=== PATIENT | female | born 1980 | race American Indian/Alaskan Native ===

== ENCOUNTER 2017-07-26 12:36 | Emergency (ER) | payer SELFPAY ==
[2017-07-26] MEDS ORDERED: MOTRIN PO ONE (16:01)
--- NOTE | 2017-07-26 16:01 | Emergency Department Report ---
ED Extremity Problem HPI - General Chief complaint: Extremity Injury, Lower Stated complaint: RIGHT KNEE PAIN/FALL Time Seen by Provider: 07/26/17 15:36 Source: patient Mode of arrival: Ambulatory Limitations: No Limitations - History of Present Illness Initial comments: Patient reports that she had a ground-level fall last night. She said her right knee dislocated but when she hit the ground it popped back into place and also complaining of left knee pain and left hip pain. Denies any head injury or loss of consciousness. Pain to left knee is 4 out of 10. Reports that when she walks it's painful but she is able to bear weight. Denies any nausea or vomiting. Denies any dizziness. Pain is achy and she said she had not take any [id number] medication for pain. Medical history of bronchitis. Blood pressure is 140/100 and patient reports she does not have a history of high blood pressure but she does have family history of high blood pressure MD Complaint: joint swelling (swelling to both knees), joint paint -: Last night Location: left, right, knee History of Same: No -: No myalgia, Yes arthralgia, No fever, No associated dyspnea, No associated chest pain Radiation: none Severity scale (0 -10): 4 Quality: aching Consistency: intermittent Improves with: immobilization, rest Worsens with: weight bearing, walking, palpation Associated Symptoms: arthralgias. denies: chest pain, shortness of breath, fever, myalgias, rash - Related Data Previous Rx's Medication Instructions Recorded Last Taken Type Naproxen 500 mg PO Q12H PRN #12 tablet 07/26/17 Unknown Rx Allergies Allergy/AdvReac Type Severity Reaction Status Date / Time No Known Allergies Allergy Unverified 04/08/15 16:49 ED Review of Systems ROS: Stated complaint: RIGHT KNEE PAIN/FALL Other details as noted in HPI Comment: All other systems reviewed and negative Constitutional: no symptoms reported Respiratory: no symptoms reported Cardiovascular: denies: chest pain, palpitations, dyspnea on exertion, orthopnea , edema, syncope, paroxysmal nocturnal dyspnea Gastrointestinal: denies: abdominal pain, nausea, vomiting Musculoskeletal: joint swelling, arthralgia. denies: back pain, myalgia Skin: denies: rash Neurological: denies: headache, weakness, numbness, paresthesias, confusion, abnormal gait, vertigo ED Past Medical Hx - Past Medical History Previous Medical History?: Yes Additional medical history: Bronchitis - Surgical History Past Surgical History?: No - Family History Family history: no significant - Social History Smoking Status: Never Smoker Substance Use Type: Alcohol - Medications Home Medications: Home Medications Medication Instructions Recorded Confirmed Last Taken Type Naproxen 500 mg PO Q12H PRN #12 tablet 07/26/17 Unknown Rx ED Physical Exam - General Limitations: No Limitations General appearance: alert, in no apparent distress - Head Head exam: Present: atraumatic, normocephalic, normal inspection - Eye Eye exam: Present: normal appearance, PERRL, EOMI Pupils: Present: normal accommodation - ENT ENT exam: Present: normal exam, normal orophraynx, mucous membranes moist - Neck Neck exam: Present: normal inspection, full ROM. Absent: tenderness, meningismus, lymphadenopathy - Respiratory Respiratory exam: Present: normal lung sounds bilaterally. Absent: respiratory distress, chest wall tenderness, accessory muscle use - Cardiovascular Cardiovascular Exam: Present: regular rate, normal rhythm, normal heart sounds. Absent: systolic murmur, diastolic murmur - GI/Abdominal GI/Abdominal exam: Present: soft, normal bowel sounds. Absent: distended, tenderness, guarding, rebound, rigid, organomegaly, mass, bruit, pulsatile mass , hernia - Extremities Exam Extremities exam: Present: normal inspection, full ROM (patient with full range of motion to both knees but she reports pain with flexion and extension.), tenderness (tenderness to anterior knee), normal capillary refill, joint swelling (mild swelling noted to the anterior knee.), calf tenderness, other ( no clubbing, cyanosis or edema. +2 pulses to her extremity. No neurovascular compromise). Absent: pedal edema - Expanded Lower Extremity Exam Left Hip exam: Present: normal inspection, full ROM, pelvic stability. Absent: tenderness, swelling, abrasion, laceration, ecchymosis, deformity, crepidus, dislocation, erythema, external rotation, internal rotation, shortening Upper Leg exam: Present: normal inspection, full ROM. Absent: tenderness, swelling, abrasion, laceration, ecchymosis, deformity, crepidus, dislocation, erythema Knee exam: Present: full ROM (full range of motion to the knee but patient reports pain with flexion and extension), tenderness (anterior knee), swelling ( mild swelling), full knee extension. Absent: normal inspection, abrasion, laceration, ecchymosis, deformity, crepidus, dislocation, erythema, effusion, pain w/ pronation/supination, posterior draw sign, pain/laxity with valgus, pain /laxity with varus Lower Leg exam: Present: normal inspection, full ROM. Absent: tenderness, swelling, abrasion, laceration, ecchymosis, deformity, crepidus, dislocation, erythema, palpable cord, Aly's sign Ankle exam: Present: normal inspection, full ROM. Absent: tenderness, swelling , abrasion, laceration, ecchymosis, deformity, crepidus, dislocation, erythema Foot/Toe exam: Present: normal inspection, full ROM. Absent: tenderness, swelling, abrasion, laceration, ecchymosis, deformity, crepidus, dislocation, erythema, amputation, puncture wound, foreign body, calcaneal tenderness, tenderness at base of 5th metatarsal, nail avulsion, subungual hematoma Neuro vascular tendon exam: Present: no vascular compromise. Absent: pulse deficit, abnormal cap refill, motor deficit, sensory deficit, tendon deficit, extremity cold to touch, pallor, abnormal 2-point discrimination, decreased fine /light touch, foot drop, peroneal nerve deficit, significant pain with passive ROM of distal joint Gait: Positive: observed and limited by pain - Back Exam Back exam: Present: normal inspection, full ROM, other (she ambulates without any difficulties). Absent: tenderness, CVA tenderness (R), CVA tenderness (L), muscle spasm, paraspinal tenderness, vertebral tenderness, rash noted - Neurological Exam Neurological exam: Present: alert, oriented X3, normal gait, reflexes normal, other (no gross focal neurological deficit). Absent: motor sensory deficit - Psychiatric Psychiatric exam: Present: normal affect, normal mood - Skin Skin exam: Present: warm, dry, intact, normal color. Absent: rash ED Course Vital Signs 07/26/17 12:47 Temperature 98.8 F Pulse Rate 88 Respiratory 18 Rate Blood Pressure 141/100 O2 Sat by Pulse 99 Oximetry - Reevaluation(s) Reevaluation #1: 07/26/17 18:17 She given Motrin 800 mg when necessary emergency room for bilateral knee pain. See procedure note for details on splinting - Orthopedic Splinting/Casting Injury #1 Side: right Lower Extremity Injury Location: knee Lower Extremity Immobilizer: Ra wrap Injury #2 Side: left Lower Extremity Injury Location: knee Lower Extremity Immobilizer: Ra wrap ED Medical Decision Making - Radiology Data Radiology results: image reviewed interpreted by me: X-ray of both knees reveal no acute bony abnormalities - Medical Decision Making ED course: Patient here reports that she fell last night and injured both her knee. She said knees were dislocated but it popped back into place. She is not complain any pain 01/12. X-ray findings reveal no acute bony abnormality. Physical findings for tender anterior knee with mild swelling. No tenderness to posterior or lateral aspect of both knees. Patient able to ambulate with minimal pain. She is able to flex and extend her knees with minimal pain. I discussed the patient x-ray result. Ra wrap placed to both knees and I told her she will need to follow up with orthopedic doctor she continues to have pain. Patient was undescended discharge instruction and treatment plan she was given Motrin 800 mg by mouth in emergency room for knee pain and discharged home with prescription for naproxen and to follow-up with Dr. Hinojosa who is orthopedic doctor. Critical care attestation.: If time is entered above; I have spent that time in minutes in the direct care of this critically ill patient, excluding procedure time. ED Disposition Clinical Impression: Strain of knee, bilateral Bilateral knee pain Qualifiers: Chronicity: acute Qualified Code(s): M25.561 - Pain in right knee; M25.562 - Pain in left knee; M25.562 - Pain in left knee Disposition: TO HOME OR SELFCARE Is pt being admited?: No Does the pt Need Aspirin: No Condition: Stable Instructions: Arthralgia (ED), Knee Pain (ED), Knee Exercises (GEN) Additional Instructions: Take medication as prescribed . Referred to discharge instruction in [facility]. These follow-up with orthopedic doctor as instructed. Prescriptions: Naproxen 500 mg PO Q12H PRN #12 tablet PRN Reason: Pain, Moderate (4-6) Forms: Work/School Release Form(ED)
--- NOTE | 2017-07-26 18:28 | XRay Report ---
FINAL REPORT EXAM: XR KNEE BILAT 3V HISTORY: fall with renetta knee pain TECHNIQUE: Left knee three views Right knee three views PRIORS: None. FINDINGS: No fracture is identified. No dislocation seen. No evidence of joint effusion. Patella demonstrates normal positioning. No acute bony abnormality identified. IMPRESSION: Negative bilateral knee series
[2017-07-26 18:39] VITALS: BP 130/90
== END 2017-07-26 18:39 | disposition home or self-care (01) ==
LOC: ED 12:36
DX: S76.912A Strain of unspecified muscles, fascia and tendons at thigh level, left thigh, initial encounter (principal); S76.911A Strain of unspecified muscles, fascia and tendons at thigh level, right thigh, initial encounter; W18.30XA Fall on same level, unspecified, initial encounter; Y93.89 Activity, other specified; Y92.89 Other specified places as the place of occurrence of the external cause; Y99.8 Other external cause status
CPT/HCPCS: 99283

== ENCOUNTER 2019-10-31 09:50 | Emergency (ER) | payer SELFPAY ==
[2019-10-31 09:55] VITALS: BP 148/100
--- NOTE | 2019-10-31 12:39 | Emergency Department Report ---
ED Abdominal Pain HPI - General Chief Complaint: Abdominal Pain Stated Complaint: MIDDLE STOMACH KNOT/PAIN Time Seen by Provider: 10/31/19 12:38 Source: patient Mode of arrival: Ambulatory Limitations: No Limitations - Related Data Previous Rx's Medication Instructions Recorded Last Taken Type Naproxen 500 mg PO Q12H PRN #12 tablet 07/26/17 Unknown Rx Allergies Allergy/AdvReac Type Severity Reaction Status Date / Time No Known Allergies Allergy Unverified 04/08/15 16:49 ED Review of Systems ROS: Stated complaint: MIDDLE STOMACH KNOT/PAIN Other details as noted in HPI ED Past Medical Hx - Past Medical History Previous Medical History?: No Additional medical history: Bronchitis - Surgical History Past Surgical History?: No - Social History Smoking Status: Never Smoker Substance Use Type: Alcohol - Medications Home Medications: Home Medications Medication Instructions Recorded Confirmed Last Taken Type Naproxen 500 mg PO Q12H PRN #12 tablet 07/26/17 Unknown Rx ED Physical Exam - General Limitations: No Limitations ED Course Vital Signs 10/31/19 09:54 Temperature 98.1 F Pulse Rate 83 Respiratory 16 Rate Blood Pressure 148/100 O2 Sat by Pulse 98 Oximetry Critical care attestation.: If time is entered above; I have spent that time in minutes in the direct care of this critically ill patient, excluding procedure time. ED Disposition Condition: Stable Instructions: Abdominal Pain (ED) Referrals: PRIMARY CARE, [Primary Care Provider] - 3-5 Days
--- NOTE | 2019-10-31 13:04 | Emergency Department Report ---
Chief Complaint: Abdominal Pain Stated Complaint: MIDDLE STOMACH KNOT/PAIN Time Seen by Provider: 10/31/19 12:38 - HPI History of Present Illness: 38-year-old -[place] female presents to the emergency room for intermittent not to her middle abdomen for 4-5 months. Patient states that she notices worse when she lifts heavy objects or exercises. Patient states that the pain is when she lifts or does exercise. Patient reports that the pain was worse last week. - Exam Vital Signs: Vital Signs 10/31/19 09:54 Temperature 98.1 F Pulse Rate 83 Respiratory 16 Rate Blood Pressure 148/100 O2 Sat by Pulse 98 Oximetry Physical Exam: Patient's alert and oriented 3 no acute distress nontoxic in appearance. Abdomen soft nondistended and nontender all 4 quadrants. There is noted to have a protrusion on the umbilicus area with bearing down. Appears the patient has an umbilical hernia that is reducible. Ambulatory without difficulties range of motion of all extremities MSE screening note: Focused history and physical exam performed. Due to findings the following was ordered: 38-year-old -[place] female presents to the emergency room for intermittent not to her middle abdomen for 4-5 months. Patient states that she notices worse when she lifts heavy objects or exercises. Patient states that the pain is when she lifts or does exercise. Patient reports that the pain was worse last week. Exam is within normal limits. Discussed with patient she needs to follow up with general surgeon for evaluation of hernia repair. Patient verbalized understanding. ED Disposition for MSE Clinical Impression: Umbilical hernia Disposition: DC-01 TO HOME OR SELFCARE Is pt being admited?: No Does the pt Need Aspirin: No Condition: Stable Instructions: Abdominal Pain (ED), Ventral Hernia (ED) Additional Instructions: Please follow up with general surgery. I have listed several below for your convenience. Return back to the emergency room if the hernia protrudes and were not able to reduce on your own. Excruciating pain redness severe tenderness. Referrals: PRIMARY CARE, [Primary Care Provider] - 3-5 Days NIKKI SAUER MD [Staff Physician] - 3-5 Days SHEY GARIBAY MD [Staff Physician] - 3-5 Days MINDY HILL MD [Staff Physician] - 3-5 Days Forms: Work/School Release Form(ED)
== END 2019-10-31 13:21 | disposition home or self-care (01) ==
LOC: ED 09:50
DX: K42.9 Umbilical hernia without obstruction or gangrene (principal)